=== PATIENT | male | born 1995 ===

== ENCOUNTER 2016-10-16 22:21 | Emergency (ER) | payer SELFPAY ==
[2016-10-16 22:32] VITALS: BP 133/82; PULSE 59; RESP 18; TEMP 98.9; O2SAT 98
[2016-10-16] MEDS ORDERED: Sodium Chloride 0.9% 1,000 ML IV STA (22:46)
--- NOTE | 2016-10-16 23:33 | ED PDOC ---
HPI: Abdomen Time Seen by Provider: 10/16/16 22:38 Chief Complaint (Nursing): Chest Pain Chief Complaint (Provider): abdominal pain History Per: Patient History/Exam Limitations: no limitations Onset/Duration Of Symptoms: Days Outside of [place] travel?: No Current Symptoms Are (Timing): Still Present Additional Complaint(s): 21yo male w/ no PMHx presents to the ED w/ c/o epigastric abdominal pain ongoing for many years that has worsened in the last 2 weeks radiating up to his chest associated w/ acidic taste in throat and throat pain. Patient reports taking nexium w/ minimal relief. Pain is worse when he eats. Notes intermittent constipation. Denies n/v/d, fever, chills. PCP: none Past Medical History Reviewed: Historical Data, Nursing Documentation, Vital Signs Vital Signs: Last Vital Signs Temp 98.9 F 10/16/16 22:27 Pulse 59 L 10/16/16 22:27 Resp 18 10/16/16 22:27 BP 133/82 10/16/16 22:27 Pulse Ox 98 10/16/16 23:49 - Medical History PMH: No Chronic Diseases - Surgical History Surgical History: No Surg Hx - Family History Family History: States: Diabetes, Hypertension Other Family History: gastritis - Social History Current smoker - smoking cessation education provided: No Alcohol: Occasional (2-3 times per month) Drugs: Denies - Home Medications Home Medications: Ambulatory Orders Medication Instructions Recorded Dicyclomine [Bentyl] 20 mg PO BID PRN #20 tab 10/17/16 Polyethylene Glycol 3350 [Miralax] 17 gm PO DAILY PRN #1 bottle 10/17/16 - Allergies Allergies/Adverse Reactions: Allergies Allergy/AdvReac Type Severity Reaction Status Date / Time No Known Allergies Allergy Verified 10/16/16 22:27 Review of Systems ROS Statement: Except As Marked, All Systems Reviewed And Found Negative Constitutional: Negative for: Fever, Chills ENT: Positive for: Throat Pain, Other (acidic taste in throat ) Cardiovascular: Positive for: Chest Pain Gastrointestinal: Positive for: Abdominal Pain (epigastric ), Constipation ( intermittent ). Negative for: Nausea, Vomiting, Diarrhea Physical Exam - Reviewed Nursing Documentation Reviewed: Yes Vital Signs Reviewed: Yes - Physical Exam Appears: Positive for: Well, In Acute Distress (mild painful ) Head Exam: Positive for: ATRAUMATIC, NORMAL INSPECTION, NORMOCEPHALIC Skin: Positive for: Normal Color, Warm, Dry Eye Exam: Positive for: Normal appearance, EOMI, PERRL ENT: Positive for: Normal ENT Inspection Neck: Positive for: Normal, Painless ROM, Supple Cardiovascular/Chest: Positive for: Regular Rate, Rhythm. Negative for: Murmur , Tachycardia Respiratory: Positive for: Normal Breath Sounds. Negative for: Wheezing, Respiratory Distress Gastrointestinal/Abdominal: Positive for: Soft, Tenderness (mild epigastric and suprapubic tenderness to palpation ). Negative for: Mass, Distended, Guarding, Rebound Back: Positive for: Normal Inspection. Negative for: L CVA Tenderness, R CVA Tenderness Extremity: Positive for: Normal ROM. Negative for: Deformity, Swelling Neurologic/Psych: Positive for: Alert, Oriented - Laboratory Results Result Diagrams: 10/16/16 23:34 10/16/16 23:34 - ECG O2 Sat by Pulse Oximetry: 98 Pulse Ox Interpretation: Normal (RA) Medical Decision Making Medical Decision Makin: Impression: abdominal pain Plan: Labs EKG Obstructive series Bentyl 20mg PO, Lidocaine 2% viscous 10ml PO, IVF reassess Labs unremarkable. Xray unremarkable Scribe Attestation: Documented by Nisha Roe acting as a scribe for Fela Odom MD. Provider Scribe Attestation: All medical record entries made by the Scribe were at my direction and personally dictated by me. I have reviewed the chart and agree that the record accurately reflects my personal performance of the history, physical exam, medical decision making, and the department course for this patient. I have also personally directed, reviewed, and agree with the discharge instructions and disposition. Disposition - Clinical Impression Clinical Impression: Gastroesophageal reflux, Constipation - Disposition Referrals: [facility] [Outside] [facility] [Outside] ([facility] CHEO SOFIA EN 2-3 VILLA A CHEQAR DE NEUVO) Disposition: Routine/Home Disposition Time: 00:10 Condition: STABLE Prescriptions: Dicyclomine [Bentyl] 20 mg PO BID PRN #20 tab PRN Reason: abdominal pain Polyethylene Glycol 3350 [Miralax] 17 gm PO DAILY PRN #1 bottle PRN Reason: Constipation Instructions: Gastroesophageal Reflux Disease (ED), Constipation (ED) Forms: [facility] ED School/Work Excuse Print Language: ESTONIAN
[2016-10-16 23:44] LABS: BASO % 0.4 % (0.0-2.0); EOS # 0.4 K/uL (0.0-0.7); EOS % 4.9 % (0.0-4.0); LYMPH # 2.5 K/uL (1.0-4.3); LYMPH % 33.5 % (20.0-40.0); MEAN CELL VOLUME 89.8 fl (80.0-94.0); MEAN CORPUSCULAR HEMOGLOBIN 29.7 pg (27.0-31.0); MEAN CORPUSCULAR HGB CONC 33.1 g/dL (33.0-37.0); MEAN PLATELET VOLUME 8.5 fl (7.2-11.7); MONO # 0.5 K/uL (0.0-0.8); MONO % 6.5 % (0.0-10.0); NEUT # 4.1 K/uL (1.8-7.0); NEUT % 54.7 % (50.0-75.0); NRBC % 0.1 % (0.0-0.0); RED CELL DISTRIBUTION WIDTH 13.2 % (11.5-14.5); WHITE BLOOD COUNT 7.4 K/uL (4.8-10.8)
[2016-10-16 23:51] LABS: ALB/GLOB RATIO 1.5 (1.0-2.1); ALKALINE PHOSPHATASE 102 U/L (38-126); ALT/SGPT 35 U/L (21-72); AST/SGOT 29 U/L (17-59); BILIRUBIN,TOTAL 0.9 mg/dl (0.2-1.3); BLOOD UREA NITROGEN 16 mg/dl (9-20); CALCIUM 9.6 mg/dL (8.4-10.2); CARBON DIOXIDE 23 mmol/L (22-30); CHLORIDE 104 mmol/L (98-107); GFR AFRICAN-AMERICAN > 60; GLUCOSE,RANDOM 104 mg/dL (75-110); LIPASE 49 U/L (23-300); POTASSIUM 3.7 MMOL/L (3.6-5.0); SODIUM 137 mmol/l (132-148); TOTAL PROTEIN 7.3 G/DL (6.3-8.2)
--- NOTE | 2016-10-17 15:35 | RAD ---
PROCEDURE: Radiographs of the chest and abdomen (obstructive series) HISTORY: Abdominal pain. Rule out SBO. COMPARISON: No prior. TECHNIQUE: AP radiograph of the chest, with upright and supine radiographs of the abdomen. FINDINGS: CHEST: Heart size normal. Lung fraire clear without focal consolidation or effusion. No evidence of a pneumothorax. ABDOMEN AND PELVIS: No evidence of free intraperitoneal air. Moderate amount of stool seen throughout the colon consistent with fecal retention/constipation. Note is made of a subtle levoscoliosis centered at the T11-T12 level possibly due to for further evaluation and determine IMPRESSION: No evidence of obstruction. Findings suggest constipation. No acute cardiopulmonary disease.
--- NOTE | 2016-10-17 23:54 | CARD ---
APPROVED REPORT EKG Measurement Heart [id number] <Conclusion> Normal sinus rhythm Incomplete right bundle branch block Borderline ECG
== END 2016-10-17 00:35 | disposition home or self-care (01) ==
LOC: H.ER 22:21
DX: K21.9 Gastro-esophageal reflux disease without esophagitis (principal); K59.00 Constipation, unspecified
CPT/HCPCS: 74022; 80053; 83690; 85025; 93005; 96360; 99282; J7040